=== PATIENT | female | born 1960 | race Caucasian/White ===

== ENCOUNTER 2023-02-11 11:02 | Outpatient (OUT) | payer OTHER, SELFPAY ==
--- NOTE | 2023-02-11 11:06 | MM_ITS ---
Patient: JOYCE GRAYSON V. Exam Date: 02/11/2023 : 1960 Gender:F Ordering : DR SHAAN LEE Admission #: [id number] Family : Order #: [id number] CLICK HERE TO VIEW EXAM RADIOLOGY REPORT PROCEDURE: MM TOMOSYNTHESIS SCREENING BI COMPARISON: MG MAMM SCREEN 3D SONY CAD, 02/04/2021. MG MAMM SCREEN 3D SONY CAD, 02/06/2022. INDICATIONS: Screening Calculator Name NCI Breast Cancer Risk Assessment Tool 5 Year Breast Cancer Risk 1.70% Lifetime Breast Cancer Risk 7.70% Personal Breast Cancer No Personal Ovarian Cancer No Treatments None Family Cancers Aunt-maternal with breast cancer at age 62; Cousin-maternal with breast cancer at age 33; Aunt-maternal with unknown cancer at age ~60. LOCATION: [facility] BREAST COMPOSITION: Heterogeneously dense,which may obscure small masses. FINDINGS: DIAGNOSTIC CATEGORY 2--BENIGN FINDING. NO CHANGE FROM COMPARISON. Scattered benign-appearing nodules are present. Scattered benign-appearing calcifications are present. Scattered benign-appearing lymph nodes are present. RIGHT BREAST: No significant suspicious finding. LEFT BREAST: No significant suspicious finding. RECOMMENDATIONS: ROUTINE MAMMOGRAM AND CLINICAL EVALUATION IN 12 MONTHS. PLEASE NOTE: A NORMAL MAMMOGRAM DOES NOT EXCLUDE THE POSSIBILITY OF BREAST CANCER. A CLINICALLY SUSPICIOUS PALPABLE LUMP SHOULD BE BIOPSIED. Dictated by: Reed Pond MD on 02/12/2023 at 11:06 Approved by: Reed Pond MD on 02/12/2023 at 11:08
== END 2023-02-11 11:03 | disposition home or self-care (01) ==
LOC: MAMMO 11:02
PROVIDERS: PCP Nurse Practitioner Family; Visit Provider Nurse Practitioner Family
DX: Z12.31 Encounter for screening mammogram for malignant neoplasm of breast (principal); Z80.3 Family history of malignant neoplasm of breast; Z80.9 Family history of malignant neoplasm, unspecified
CPT/HCPCS: 77063; 77067

== ENCOUNTER 2024-03-01 12:42 | Outpatient (OUT) | payer OTHER, SELFPAY ==
--- NOTE | 2024-03-01 12:45 | MM_ITS ---
Patient Name: JOYCE GRAYSON MR#: [id number] : 1960 Exam Date: 03/01/2024 Ordering Doctor: Whitney Hough RADIOLOGY REPORT PROCEDURE: MM TOMOSYNTHESIS SCREENING BI COMPARISON: MG MAMM SCREEN 3D SONY CAD, 02/06/2022. MM TOMOSYNTHESIS SCREENING BI, 02/11/2023. INDICATIONS: screening for malignant neoplasm of breast Calculator Name NCI Breast Cancer Risk Assessment Tool 5 Year Breast Cancer Risk 1.70% Lifetime Breast Cancer Risk 7.40% Personal Breast Cancer No Personal Ovarian Cancer No Treatments None Family Cancers Aunt-maternal with breast cancer at age 62; Cousin-maternal with breast cancer at age 33; Aunt-maternal with unknown cancer at age ~60. LOCATION: [facility] BREAST COMPOSITION: The breasts are heterogeneously dense,which may obscure small masses. FINDINGS: DIAGNOSTIC CATEGORY 2--BENIGN FINDING. NO CHANGE FROM COMPARISON. Scattered benign-appearing nodules are present. Scattered benign-appearing calcifications are present. Scattered benign-appearing lymph nodes are present. RIGHT BREAST: No significant suspicious finding. LEFT BREAST: No significant suspicious finding. RECOMMENDATIONS: ROUTINE MAMMOGRAM AND CLINICAL EVALUATION IN 12 MONTHS. PLEASE NOTE: A NORMAL MAMMOGRAM DOES NOT EXCLUDE THE POSSIBILITY OF BREAST CANCER. A CLINICALLY SUSPICIOUS PALPABLE LUMP SHOULD BE BIOPSIED. Dictated by: Reed Pond MD on 03/01/2024 at 14:16 Approved by: Reed Pond MD on 03/01/2024 at 14:23
--- OUTSIDE RECORDS SUMMARY | 2024-03-01 12:48 | XMS_ITS | CCD ---
Author Organization [facility] Care Team Providers Care Technical Trainer Name Role Phone ANA ANDERSON Attending Unavailable FARIHA HARRINGTON Primary Care Unavailable YUHAS, DR FRIED Admitting Unavailable YUHAS, DR FRIED Attending Unavailable YUHAS, DR FRIED Consulting Unavailable KUNS, DR LIZ Parker Admitting Unavailable KUNS, DR LIZ Parker Attending Unavailable KUNAntony, DR LIZ Parker Primary Care Unavailable KUNAntony, DR LIZ Parker Consulting Unavailable Good Yu Attending Unavailmandeep Yu, Good Parker Admitting UnavailFariha Hendrix Primary Care Unavailable MD Good Yu Attending Provider [phone] DO Fariha Harrington Primary Care Provider [phone] Fariha Harrington DO Primary Care Provider Kathy Redman Primary Care Provider TRISTA SAINI Attending Unavailable TRISTA SAINI Attending Unavailable MARCELLA FINNEY Referring Unavailable CHRIS KATHY Primary Care Unavailable KATHY PEREZ Referring Unavailable CHRIS, KATHY Primary Care Unavailable TRISTA SAINI Referring Unavailable CHRIS, KATHY Primary Care Unavailable TRISTA SAINI Referring Unavailable CHRIS, KATHY Primary Care Unavailable TRISTA SAINI Referring Unavailable CHRIS, KATHY Primary Care Unavailable KATHY PEREZ Referring Unavailable CHRIS, KATHY Primary Care Unavailable YUHASFARIHA Referring Unavailable ELDERHAFARIHA Hardy Primary Care Unavailable KATHY PEREZ Attending Unavailable FARIHA HARRINGTON Referring Unavailable YUHAS, FARIHA L Primary Care Unavailable MARCELLA FINNEY Attending Unavailable YUHASFARIHA Referring Unavailable PEREZ, KATHY Primary Care Unavailable LIZ ELIAS Attending Unavailable ELDERHAFARIHA Hardy Referring Unavailable YUFARIHA JOSEPH L Primary Care Unavailable KATHY PEREZ Attending Unavailable KATHY PEREZ Referring Unavailable CHRIS, KATHY Primary Care Unavailable KATHY PEREZ Attending Unavailable KATHY PEREZ Referring Unavailable KATHY PEREZ Primary Care Unavailable Allergies Allergy Classification Reported Allergen(s) Allergy Type Date of Onset Reaction(s) Facility (8 sources) Mold Extract; Translations: [MOLD] Drug Allergy 10-21-2016 [facility] 14 Work Phone: Medications Current Medications Medication Drug Class(es) Dates Sig (Normalized) Sig (Original) ascorbic acid 1000 mg oral tablet (6 sources) Vitamin C Start: 11-24-2022 take 1 g by mouth once daily Ascorbic Acid (Vitamin C) (Vitamin C) 1,000 mg Tablet Active 1 GM PO Daily November 24, 2022 12:00am cholecalciferol 0.05 mg oral tablet (6 sources) Vitamin D Start: 11-24-2022 take 1 tablet by mouth once daily Cholecalciferol (Vitamin D3) (Vitamin D3) 50 mcg (2,000 unit) Tablet Active 150 MCG PO Daily November 24, 2022 12:00am cholecalciferol, vitamin D3, 2,000 units tablet 0.5 tablets (1,000 Units total) in the morning. Active cinnamon bark 500 mg oral capsule (6 sources) Start: 11-24-2022 take 1 capsule by mouth once daily Cinnamon Bark (Cinnamon) 500 mg Capsule Active 1500 MG PO Daily November 24, 2022 12:00am cyclobenzaprine hydrochloride 5 mg oral tablet (1 source) Muscle Relaxant Start: 02-29-2024 take 1 tablet by mouth once daily as needed for muscle spasms cyclobenzaprine (FLEXERIL) 5 mg tablet Indications: Degeneration of intervertebral disc of lumbar region, unspecified whether pain present Take 1 tablet (5 mg total) by mouth nightly as needed for muscle spasms. 14 tablet 02/29/2024 Active ERGOCALCIFEROL, VITAMIN D2, (VITAMIN D2 ORAL) (5 sources) ERGOCALCIFEROL, VITAMIN D2, (VITAMIN D2 ORAL) Take by mouth. Active ERGOCALCIFEROL, VITAMIN D2, (VITAMIN D2 ORAL) Take by mouth. 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 90 tablet 3 04/02/2023 Active Start: 11-24-2022 take 125 ug by mouth once daily Levothyroxine Active 125 MCG PO Daily November 24, 2022 12:00am Bryceland's Wort (1 source) Start: 11-24-2022 take 300 mg by mouth once daily Dyan's Wort Active 300 MG PO Daily November 24, 2022 12:00am DYAN'S WORT ORAL (2 sources) DYAN'S WORT ORAL Take by mouth. Active DYAN'S WORT ORAL Take by mouth. 0 Active vitamin b12 1 mg oral tablet (5 sources) Vitamin B12 cyanocobalamin ( vitamin B-12) 1000 MCG tablet 500 tablets (500,000 mcg total). Active vitamin b6 100 mg oral tablet (5 sources) pyridoxine, yaneth min B6, (vitamin B-6) 100 mg tablet 1 tablet Active Zinc (6 sources) Start: 11-24-2022 take 50 mg by mouth once daily Zinc Active 50 MG PO Daily November 24, 2022 12:00am zinc 50 mg table t tablet zinc Active zinc 50 mg table t tablet zinc 0 Active Completed/Discontinued Medications Medication Drug Class(es) Dates Sig (Normalized) Sig (Original) meloxicam 15 mg oral tablet (4 sources) Nonsteroidal Anti-inflammatory Drug Start: 05-18-2023 End: 07-07-2023 take 1 tablet by mouth in the morning meloxicam (MOBIC) 15 mg tablet Take 1 tablet (15 mg total) by mouth in the morning. 15 tablet 1 05/18/2023 07/07/2023 Discontinued (Therapy completed) tiZANidine 4 mg oral tablet (6 sources) Central alpha-2 Adrenergic Agonist Start: 05-18-2023 End: 07-07-2023 take 1 tablet by mouth once daily at bedtime tiZANidine (ZANAFLEX) 4 mg tablet Take 1 tablet (4 mg total) by mouth once daily at bedtime. 30 tablet 0 06/15/2023 07/07/2023 Discontinued (Therapy completed) Problems Active Problems Problem Classification Problem Date Documented Date Episodic/Chronic Disorders of lipid metabolism (6 sources) Mixed hyperlipidemia; Translations: [Mixed hyperlipidemia] Onset: 03-31-2022 03-31-2022 Chronic Menopausal disorders (5 sources) Atrophic vaginitis; Translations: [Postmenopausal atrophic vaginitis] Onset: 03-23-2018 03-18-2022 Chronic Nutritional deficiencies (5 sources) Vitamin D deficiency; Translations: [Vitamin D deficiency, unspecified] Onset: 08-22-2022 08-22-2022 Chronic Other eye disorders (5 sources) 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; Translations: [Unspecified retained (old) intraocular foreign body, nonmagnetic, unspecified eye] Onset: 03-18-2022 03-18-2022 Chronic Other nervous system disorders (3 sources) Anesthesia of skin; Translations: [Anesthesia of skin] Onset: 01-13-2024 Episodic Other nervous system disorders (1 source) Paresthesia; Translations: [Paresthesia of skin] 02-29-2024 Episodic Other nervous system disorders (1 source) Numbness Onset: 01-13-2024 Episodic Other nutritional; endocrine; and metabolic disorders (1 source) Body mass index 30+ - obesity; Translations: [Body mass index (BMI) 30.0-30.9, adult] 07-07-2023 Chronic Other screening for suspected conditions (not mental disorders or infectious disease) (6 sources) Encounter for screening mammogram for malignant neoplasm of breast; Translations: [Patient encounter status] Onset: 02-06-2022 Episodic Residual codes; unclassified (1 source) Family history of malignant neoplasm of breast; Translations: [FAMILY HX MALIG NEOPLASM OF BREAST] Onset: 02-14-2022 Episodic Residual codes; unclassified (1 source) Family history of malignant neoplasm, unspecified; Translations: [FAM HX MALIGNANT NEOPLASM UNS] Onset: 02-14-2022 Episodic Spondylosis; intervertebral disc disorders; other back problems (2 sources) Degeneration of lumbar intervertebral disc; Translations: [Degeneration of intervertebral disc of lumbar region, unspecified whether pain present] 02-29-2024 Chronic Thyroid disorders (17 sources) 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; Translations: [Other specified hypothyroidism] Onset: 07-01-2017 03-18-2022 Chronic Unclassified (2 sources) CONTACT W/AND (SUSP) EXPOS COVID-19; Translations: [CONTACT W/AND (SUSP) EXPOS COVID-19] Onset: 05-08-2021 Unclassified (1 source) Encounter for screening for malignant neoplasm of colon; Translations: [Encounter for screening for malignant neoplasm of colon] Onset: 11-25-2022 Unclassified (1 source) New Patient Onset: 07-07-2023 Viral infection (1 source) COVID-19; Translations: [COVID-19] Onset: 05-08-2021 Past or Other Problems Problem Classification Problem Date Documented Da te Episodic/Chronic Blindness and vision defects (5 sources) Bilateral eye astigmatism; Translations: [Unspecified astigmatism, bilateral] Onset: 03-07-2019 03-18-2022 Episodic Mood disorders (5 sources) Mood disorders Onset: 05-18-2023 Resolved: 02-29-2024 05-18-2023 Other non-traumatic joint disorders (1 source) Effusion, left knee; Translations: [Effusion, left knee] Onset: 08-19-2023 Episodic Spondylosis; intervertebral disc disorders; other back problems (2 sources) Chronic low back pain; Translations: [Lumbago with sciatica, left side] Onset: 05-18-2023 02-29-2024 Episodic Sprains and strains (2 sources) Low back strain; Translations: [Strain of muscle, fascia and tendon of lower back, initial encounter] Onset: 05-18-2023 05-18-2023 Episodic Unclassified (1 source) CONTACT W/AND (SUSP) EXPOS COVID-19; Translations: [CONTACT W/AND (SUSP) EXPOS COVID-19] Onset: 05-02-2021 Unclassified (5 sources) Onset: 04-08-2023 04-08-2023 Results Test Name Value Interpretation Reference Range Facility XR SPINE LUMBAR 2 OR 3 VWSon 01-15-2024 XR SPINE LUMBAR 2 OR 3 VWS XR SPINE LUMBAR 2 OR 3 VWS Lumbosacral spine: 01/13/2024 12:43 PM. Reason for study: Numbness of toes. Comparison: Lumbosacral spine radiograph from 06/02/2019. Technique: AP, lateral, and cone-down lateral views of the lumbosacral spine were obtained. Findings: There are 5 nonrib-bearing vertebrae lumbar spine. Sacroiliac joints are unremarkable. Grade 1 anterolisthesis of L4 on L5. Moderate to severe degenerative disc disease at L2-3. Moderate lumbosacral degenerative disc disease. Similar-appearing vertebral body heights. Mild to moderate facet arthropathy the lower lumbar spine. Impression: Grade 1 anterolisthesis of L4 on L5 with degenerative changes as above. 0 Finalized by Virgen Spencer MD on 01/15/2024 9:21 AM Normal [facility] Folate [Mass/Vol]on 01-13-20 FOLIC ACID >25.0 Normal >5.8 [facility] Comment on above: Result Comment: NEW REFERENCE RANGE Performed By: #### S MATA, 2283-11, 2131-12 #### [facility] ([id number]) [address], [address] [place] [address] SERUM PROTEIN ELECTROPHORESI Son 01-13-2024 Albumin [Mass/Vol] 4.1 g/dL Normal 3.4-5.3 [facility] Comment on above: Performed By: #### Antony , 2283-11, 2131-12 #### [facility] ([id number]) [address], [address] [place] [address] ALPHA 1 GLOBULIN 0.3 g/dL Normal 0.1-0.4 [facility] Comment on above: Performed By: #### S , 2283-11, 2131-12 #### [facility] ([id number]) [address], [address] [place] [address] ALPHA 2 GLOBULIN 0.8 g/dL Normal 0.4-1.1 [facility] Comment on above: Performed By: #### S , 2283-11, 2131-12 #### [facility] ([id number]) [address], [address] [place] [address] BETA GLOBULIN 0.8 g/dL Normal 0.5-1.2 [facility] Comment on above: Performed By: #### S MATA, 2283-11, 2131-12 #### [facility] ([id number]) [address], [address] [place] [address] GAMMA GLOBULIN 1.0 g/dL Normal 0.5-1.6 [facility] Comment on above: Performed By: #### S MATA, 2283-11, 2131-12 #### [facility] ([id number]) [address], [address] [place] [address] PROT. ELECTROPHORESIS INTERP Unremarkable protein distribution, no monoclonal bands. Normal [facility] Comment on above: Performed By: #### S MATA, 2283-11, 2131-12 #### [facility] ([id number]) [address], [address] [place] [address] Protein [Mass/Vol] 7.1 g/dL Normal 6.0-8.0 [facility] Comment on above: Performed By: #### S MATA, 2283-11, 2131-12 #### [facility] ([id number]) [address], [address] [place] [address] VITAMIN B12on 01-13-2024 Cobalamin (Vitamin B12) [Mass/Vol] 674 pg/mL Normal 180-914 [facility] Comment on above: Performed By: #### S PE, 2283-11, 2131-12 #### [facility] ([id number]) [address], [address] [place] [address] THYROID PROFILEon 09-01-2023 Free T4 [Mass/Vol] 1.12 ng/dL Normal 0.61-1.60 [facility] Comment on above: Performed By: #### T HYR #### [facility] ([id number]) [address], [address] [place] [address] TSH 1.36 uIU/mL Normal 0.49-4.67 [facility] Comment on above: Performed By: #### T HYR #### [facility] ([id number]) [address], [address] [place] [address] THYROID PROFILEon 05-19-2023 Free T4 [Mass/Vol] 1.34 ng/dL Normal 0.61-1.60 [facility] Comment on above: Performed By: #### T HYR #### [facility] ([id number]) [address] [place] [address] TSH 1.62 uIU/mL Normal 0.49-4.67 [facility] Comment on above: Performed By: #### T HYR #### [facility] ([id number]) [address], [address] [place] [address] MAMMO SONY SCREENon MAMMO SONY SCREEN Patient: JOYCE GRAYSON V. Exam Date: 02/06/2022 : 1960 Gender:F Ordering : DR LIZ ELIAS Admission #: Family : Order #: [id number] CLICK HERE TO VIEW EXAM RADIOLOGY REPORT PROCEDURE: MAMMOGRAM SCREENING 3D BILATERAL CAD COMPARISON: MG MAMM SCREEN 3D SONY CAD, 02/04/2021. MG MAMM SCREEN SONY W CAD, 01/30/2020. INDICATIONS: Calculator Name NCI Breast Cancer Risk Assessment Tool 5 Year Breast Cancer Risk 1.60% Lifetime Breast Cancer Risk 7.90% Personal Breast Cancer No Personal Ovarian Cancer No Treatments None Family Cancers Aunt-maternal with breast cancer at age 62; Cousin-maternal with breast cancer at age 33; Aunt-maternal with unknown cancer at age 60. LOCATION: [facility] BREAST COMPOSITION: Heterogeneously dense,which may obscure small masses. FINDINGS: DIAGNOSTIC CATEGORY 2--BENIGN FINDING. NO CHANGE FROM COMPARISON. Scattered benign-appearing nodules are present. Scattered benign-appearing calcifications are present. Scattered benign-appearing lymph nodes are present. RIGHT BREAST: No significant suspicious finding. LEFT BREAST: No significant suspicious finding. RECOMMENDATIONS: ROUTINE MAMMOGRAM AND CLINICAL EVALUATION IN 12 MONTHS. PLEASE NOTE: A NORMAL MAMMOGRAM DOES NOT EXCLUDE THE POSSIBILITY OF BREAST CANCER. A CLINICALLY SUSPICIOUS PALPABLE LUMP SHOULD BE BIOPSIED. Dictated by: Reed Pond MD on 02/07/2022 at 08:35 Approved by: Reed Pond MD on 02/07/2022 at 08:37 Normal [facility] MAMM SCREEN 3D SONY CADon 02-06-2022 MG MAMM SCREEN 3D SONY CAD Patient: JOYCE GRAYSON V. Exam Date: 02/06/2022 : 1960 Gender:F Ordering : DR LIZ ELIAS Admission #: Family : Order #: [id number] CLICK HERE TO VIEW EXAM RADIOLOGY REPORT PROCEDURE: MAMMOGRAM SCREENING 3D BILATERAL CAD COMPARISON: MG MAMM SCREEN 3D SONY CAD, 02/04/2021. MG MAMM SCREEN SONY W CAD, 01/30/2020. INDICATIONS: Calculator Name NCI Breast Cancer Risk Assessment Tool 5 Year Breast Cancer Risk 1.60% Lifetime Breast Cancer Risk 7.90% Personal Breast Cancer No Personal Ovarian Cancer No Treatments None Family Cancers Aunt-maternal with breast cancer at age 62; Cousin-maternal with breast cancer at age 33; Aunt-maternal with unknown cancer at age 60. LOCATION: [facility] BREAST COMPOSITION: Heterogeneously dense,which may obscure small masses. FINDINGS: DIAGNOSTIC CATEGORY 2--BENIGN FINDING. NO CHANGE FROM COMPARISON. Scattered benign-appearing nodules are present. Scattered benign-appearing calcifications are present. Scattered benign-appearing lymph nodes are present. RIGHT BREAST: No significant suspicious finding. LEFT BREAST: No significant suspicious finding. RECOMMENDATIONS: ROUTINE MAMMOGRAM AND CLINICAL EVALUATION IN 12 MONTHS. PLEASE NOTE: A NORMAL MAMMOGRAM DOES NOT EXCLUDE THE POSSIBILITY OF BREAST CANCER. A CLINICALLY SUSPICIOUS PALPABLE LUMP SHOULD BE BIOPSIED. Dictated by: Reed Pond MD on 02/07/2022 at 08:35 Approved by: Reed Pond MD on 02/07/2022 at 08:37 Normal [facility] Covid-19 PCR (CVDTB)on SARS-CoV-2 (COVID-19) RNA ALPA+probe Ql (Unsp spec) Detected Critically abnormal NOT DETECTED [facility] Comment on above: Result Comment: This test is not yet approved or cleared by the [place] FDA. When there are no FDA-approved or cleared tests available, and other criteria are met, FDA can make tests available under an emergency access mechanism called an Emergency Use Authorization (EUA). The EUA for this test is supported by the [place] of Health and Human Service's (HHS's) declaration that circumstances exist to justify the emergency use of in vitro diagnostics for the detection and/or diagnosis of the virus that causes COVID-19. This EUA will remain in effect (meaning this test can be used) for the duration of the COVID-19 declaration justifying emergency of IVDs, unless it is terminated or revoked by FDA (after which the test may no longer be used). Performed By: #### C [facility] #### [facility] [address] [place] [address] Dr. Karan Boo XR KNEE RIGHT (1-2 VIEWS)on 03-30-2021 XR KNEE RIGHT (1-2 VIEWS) RADRPT EXAM: XR KNEE RIGHT (1-2 VIEWS) HISTORY: TECH NOTES: Fell, generalized knee pain 2 images ro fx COMPARISON: None. TECHNIQUE: 2 views. FINDINGS: Mild patellofemoral joint degenerative changes are noted. No suprapatellar effusion seen. No acute osseous abnormality is evident. Report electronically signed by: Dr. Troy Marks IMPRESSION: Patellofemoral joint degenerative changes. No acute findings. Fell, generalized knee pain 2 images Interpreted by: Troy Marks MD Signed by: Troy Marks MD 03/30/21 Final result Normal [facility] XR SHOULDER LEFT 1 VWon 12- XR SHOULDER LEFT 1 VW RADRPT EXAM: XR SHOULDER LEFT 1 VW HISTORY: TECH NOTES: Fell 1 image ro fx COMPARISON: None. TECHNIQUE: Single view of the shoulder is obtained. FINDINGS: Single view of the shoulder is obtained. No gross abnormalities are noted. Report electronically signed by: Dr. Troy Marks IMPRESSION: Single view showing no gross abnormalities. Recommend completing the shoulder examination. Fell 1 image Interpreted by: Troy Marks MD Signed by: Troy Marks MD 03/30/21 Final result Normal [facility] CNPNon 08-23-2020 CNPN Telephone (CARCMN) ---- JOYCE GRAYSON V ([id number]) 1960 F Date Time Provider Department 08/23/20 FARIHA LEMUS (HIST) BRUNA During your visit today, we recorded the following information about you: Ariela Sahu [facility] 08/23/2020 11:33 AM Signed Spoke with pt in regards to offering appt. with another provider due to not being seen since [address] Lemus. Pt declined stating no current cardiac reasons for appt. Informed to contact scheduling office in future if needed. FEDE Burton Allergies As of Date: 08/23/2020 Noted Allergy Reaction MOLD SPORES 10/08/2016 14 - Other: See Comments Comments: Confirmed through allergy testing Date Reviewed: 03/07/2019 Reviewed by: Massiel Denton - Fully Assessed Reason for Visit: Reconnect Patient [Other] Prescriptions as of 08/23/2020 Sig: LEVOTHYROXINE 112 MCG TABLET Take 112 mcg by mouth daily b* OTC PRODUCT MIGRAINE PAIN RELIEVER 250 MG* Take as needed for migraine p* IBUPROFEN 200 MG CAPSULE One to two tablets PRN pain. Problem List As Of Date 08/23/2020 Noted Resolved HYPERLIPIDEMIA NEC/NOS [E78.5] 11/09/2008 Astigmatism with presbyopia, bilateral [H52.203*03/07/2019 Encounter Status:Closed by ARIELA CHASE on 08/23/[address] [facility] Vital Signs Date Time Vital Sign Value Performing Clinician Facility 02-29-2024 11:010500 Body height 177.8 cm Kathy Perez APRNKIWATCH Work Phone: [facility] 02-29-2024 11:01-0500 Body mass index (BMI) [Ratio] 30.13 kg/m2 Kathy Perez APRN-FORM GRADER OPERATOR Work Phone: [facility] 02-29-2024 11:01-0500 Body temperature 97.7 [degF] Kathy Perez WATERPROOFING SUPERVISOR-FORM GRADER OPERATOR Work Phone: [facility] 02-29-2024 11:01-0500 Body weight 95.25 kg Kathy Perez WATERPROOFING SUPERVISOR-FORM GRADER OPERATOR Work Phone: [facility] 02-29-2024 11:01-0500 Diastolic blood pressure 82 mm[Hg] Kathy Perez WATERPROOFING SUPERVISOR-FORM GRADER OPERATOR Work Phone: [facility] 02-29-2024 11:01-0500 Heart rate 88 /min Kathy Perez WATERPROOFING SUPERVISOR-FORM GRADER OPERATOR Work Phone: [facility] 02-29-2024 11:01-0500 Respiratory rate 18 /min Kathy Perez WATERPROOFING SUPERVISOR-FORM GRADER OPERATOR Work Phone: [facility] 02-29-2024 11:01-0500 SaO2% (BldA) [Mass fraction] 97 % Kathy Perez WATERPROOFING SUPERVISOR-FORM GRADER OPERATOR Work Phone: [facility] 02-29-2024 11:01-0500 Systolic blood pressure 126 mm[Hg] Kathy Perez WATERPROOFING SUPERVISOR-FORM GRADER OPERATOR Work Phone: [facility] 07-07-2023 13:54-0400 Body height 177.8 cm Kathy Perez WATERPROOFING SUPERVISOR-FORM GRADER OPERATOR Work Phone: [facility] 07-07-2023 13:54-0400 Body mass index (BMI) [Ratio] 30.56 kg/m2 Kathy Perez WATERPROOFING SUPERVISOR-FORM GRADER OPERATOR Work Phone: [facility] 07-07-2023 13:54-0400 Body temperature 97.81 [degF] Kathy Perez WATERPROOFING SUPERVISOR-FORM GRADER OPERATOR Work Phone: [facility] 07-07-2023 13:54-0400 Body weight 96.62 kg Kathy Perez WATERPROOFING SUPERVISOR-FORM GRADER OPERATOR Work Phone: [facility] 07-07-2023 13:54-0400 Diastolic blood pressure 82 mm[Hg] Kathy Perez APRN-FORM GRADER OPERATOR Work Phone: [email or web address] 07-07-2023 13:54-0400 Heart rate 78 /min Kathy Perez APRN-FORM GRADER OPERATOR Work Phone: [facility] 07-07-2023 13:54-0400 SaO2% (BldA) [Mass fraction] 97 % Kathy Perez APRN-FORM GRADER OPERATOR Work Phone: [facility] 07-07-2023 13:54-0400 Systolic blood pressure 122 mm[Hg] Kathy Perez APRN-FORM GRADER OPERATOR Work Phone: [facility] 05-18-2023 09:55-0500 Body height 177.8 cm Liz Elias WATERPROOFING SUPERVISOR-BANK TELLER MACHINE MECHANIC Work Phone: [facility] 05-18-2023 09:55-0500 Body mass index (BMI) [Ratio] 30.1 kg/m2 Liz Elias WATERPROOFING SUPERVISOR-BANK TELLER MACHINE MECHANIC Work Phone: [facility] 05-18-2023 09:55-0500 Body temperature 98.01 [degF] Liz Elias APRN-BANK TELLER MACHINE MECHANIC Work Phone: [facility] 05-18-2023 09:55-0500 Body weight 95.17 kg Liz Elisa APRN-BANK TELLER MACHINE MECHANIC Work Phone: [facility] 05-18-2023 09:55-0500 Diastolic blood pressure 72 mm[Hg] Liz Elias APRN-BANK TELLER MACHINE MECHANIC Work Phone: [facility] [facility] 05-18-2023 09:55-0500 Heart rate 67 /min Liz Elias APRN-BANK TELLER MACHINE MECHANIC Work Phone: [facility] 05-18-2023 09:55-0500 SaO2% (BldA) [Mass fraction] 98 % Liz Elias APRN-BANK TELLER MACHINE MECHANIC Work Phone: [facility] 05-18-2023 09:55-0500 Systolic blood pressure 128 mm[Hg] Liz Elias WATERPROOFING SUPERVISOR-BANK TELLER MACHINE MECHANIC Work Phone: [facility] 11-25-2022 10:13-0400 Diastolic blood pressure 87 mm[Hg] DO Fariha Harrington Work Phone: [facility] 11-25-2022 10:13-0400 Heart rate 65 /min DO Fariha Harrington Work Phone: [facility] 11-25-2022 10:13-0400 Respiratory rate 16 /min DO Fariha Harrington Work Phone: [facility] 11-25-2022 10:13-0400 SaO2% (BldA) [Mass fraction] 100 % DO Fariha Harrington Work Phone: [facility] 11-25-2022 10:13-0400 Systolic blood pressure 137 mm[Hg] DO Fariha Harrington Work Phone: [facility] 11-25-2022 08:22-0400 Body height 177.8 cm DO Fariha Harrington Work Phone: [facility] 11-25-2022 08:22-0400 Body temperature 97.9 [degF] DO Fariha Harrington Work Phone: [facility] 11-25-2022 08:22-0400 Body weight 97.52 kg DO Fariha Harrington Work Phone: [facility] Encounters Encounter Date Encounter Type Care Provider Facility Start: 02-29-2024 End: 02-29-2024 Office outpatient visit 15 minutes [facility] WATERPROOFING SUPERVISOR-FORM GRADER OPERATOR Work Phone: [facility]/Noé Feng MD Comment on above: Chronic left-sided l ow back pain with left-sided sciatica (Primary Dx); Degeneration of intervertebral disc of lumbar region, unspecified whether pain present; Paresthesias Start: 02-29-2024 End: 02-29-2024 ambulatory [facility] Start: 01-13-2024 End: 01-13-[address] [facility] Start: 01-13-2024 End: 01-13-2024 ambulatory [facility] Start: 01-13-2024 End: 01-13-2024 ambulatory [facility] Start: 10-26-2023 End: 11-26-2023 ambulatory TRISTA SAINI [facility] Start: 09-29-2023 End: 10-26-2023 ambulatory TRISTA SAINI Not Available Start: 09-01-2023 End: 09-01-2023 ambulatory MARCELLA FINNEY [facility] Start: 08-19-2023 End: 09-26-2023 ambulatory TRISTA SAINI [facility] Start: 08-18-2023 End: 08-18-2023 ambulatory TRISTA Simmons PAR[facility] Not Available Start: 07-07-2023 End: 07-07-2023 Office outpatient new 30 minutes [facility] WATERPROOFING SUPERVISOR-FORM GRADER OPERATOR [facility]Noé Feng MD Comment on above: 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 Start: 05-18-2023 End: 05-18-2023 Office outpatient visit 15 minutes Liz Elias WATERPROOFING SUPERVISOR-BANK TELLER MACHINE MECHANIC Work Phone: [facility] Comment on above: Strain of lumbar reg ion, initial encounter (Primary Dx) Start: 05-18-2023 End: 05-18-2023 ambulatory LIZ ELIAS [facility] Start: 11-25-2022 End: 11-25-2022 ambulatory Good Yu Facility:[facility] Start: 11-25-2022 End: 11-25-2022 Admission to same day surgery center DO Fariha Harrington Work Phone: [facility] Work Phone: Start: 11-25-2022 End: 11-25-2022 ambulatory DO Fariha Harrington Work Phone: [facility] Work Phone: Start: 02-06-2022 End: 02-07-[address] LIZ ELIAS Facility:[facility] Start: 05-02-2021 End: 05-02-[address] FARIHA HARRINGTON Facility:[facility] Start: 03-30-2021 End: 03-31-2021 Emergency department patient visit [facility] Procedures Date Procedure Procedure Detail Performing Clinician Start: 02-29-2024 Follow-up visit Follow-up KATHY PEREZ Start: 02-29-2024 Adult depression scr eening assessment Kathy Perez WATERPROOFING SUPERVISOR-FORM GRADER OPERATOR Work Phone: Start: 07-07-2023 Adult depression scr eening assessment Kathy Perez WATERPROOFING SUPERVISOR-FORM GRADER OPERATOR Work Phone: Start: 05-18-2023 Adult depression scr eening assessment Liz Elias WATERPROOFING SUPERVISOR-BANK TELLER MACHINE MECHANIC Work Phone: Start: 02-11-2023 Mammography Liz Elias WATERPROOFING SUPERVISOR-BANK TELLER MACHINE MECHANIC Work Phone: Start: 11-25-2022 Screening colonoscopy D O Fariha Harrington Work Phone: Start: 11-25-2022 Colonoscopy Liz Elias WATERPROOFING SUPERVISOR-BANK TELLER MACHINE MECHANIC Work Phone: Start: 03-31-2022 Microscopic observat ion [Identifier] in Cervix by Cyto stain Liz Elias WATERPROOFING SUPERVISOR-BANK TELLER MACHINE MECHANIC Work Phone: Plan of Treatment Date Care Activity Detail Author Start: 11-25-2032 Screening for malign ant [facility] Start: 04-23-2025 DTaP,Tdap and Td Vaccines (2 - Td or Tdap) DTaP,Tdap and Td Vaccines (2 - Td or Tdap) [facility] Start: 03-31-2025 Screening for malign ant neoplasm of cervix Pap Smear [facility] Start: 02-28-2025 Adult BMI Screening Adult BMI Screen ing [facility] Start: 02-28-2025 Depression Screening Depression Scre ening [facility] Start: 01-24-2025 Tobacco Screening Tobacco Screening [facility] Start: 09-07-2024 End: 09-07-2024 Patient encounter procedure 09/07/2024 11:30 AM EDT Office Visit [facility] [address] [place] [address] Marcella Finney MD [address] [place] [address] [facility] Start: 07-06-2024 Adult BMI Screening Adult BMI Screen ing [facility] Start: 07-06-2024 Depression Screening Depression Scre ening [facility] Start: 07-06-2024 Tobacco Screening Tobacco Screening [facility] Start: 05-18-2024 Adult BMI Screening Adult BMI Screen ing [facility] Start: 05-18-2024 Depression Screening Depression Scre ening [facility] Start: 05-18-2024 Tobacco Screening Tobacco Screening [facility] Start: 05-02-2024 End: 05-02-2024 Patient encounter procedure 05/02/2024 1:00 PM EST Office Visit [facility]/Noé Feng MD [address] [place] [phone] Kathy Perez, WATERPROOFING SUPERVISOR-FORM GRADER OPERATOR [address] [place] [address] [facility]/Noé Feng MD Start: 04-08-2024 Adult BMI Follow Up Plan Adult BMI Follow Up Plan [facility] Start: 04-08-2024 Adult BMI Screening Adult BMI Screen ing [facility] Start: 04-08-2024 Depression Screening Depression Scre ening [facility] Start: 04-08-2024 Tobacco Screening Tobacco Screening [facility] Start: 03-28-2024 End: 03-28-2024 Patient encounter procedure 03/28/2024 10:40 AM EST Office Visit [facility]/Noé Feng MD [address] [place] [phone] Kathy Perez, WATERPROOFING SUPERVISOR-FORM GRADER OPERATOR [address] [place] [address] [facility]/Noé Feng MD Start: 03-07-2024 End: 03-07-2024 Patient encounter procedure 03/07/2024 1:00 PM EST Appointment [facility] [address] [place] [phone] Degeneration of intervertebral disc of lumbar region, unspecified whether pain present [facility] Comment on above: Degeneration of inte rvertebral disc of lumbar region, unspecified whether pain present Start: 02-12-2024 Screening for malign ant neoplasm of breast Mammogram [facility] Start: 12-27-2023 Influenza vaccination Influenza Vacc ine [facility] Start: 09-01-2023 End: 09-01-2023 Patient encounter procedure 09/01/2023 1:00 PM EDT Office Visit [facility] [address] [place] [address] Marcella Finney MD [address] [place] [address] [facility] Start: 07-07-2023 End: 07-07-2023 Patient encounter procedure 07/07/2023 2:00 PM EDT Office Visit [facility]/Noé Feng MD [address] [place] [phone] Kathy Perez, WATERPROOFING SUPERVISOR-FORM GRADER OPERATOR [address] [place] [address] [facility]/Noé Feng MD Start: 12-26-2022 Influenza vaccination Influenza Vacc ine [facility] Start: 11-25-2022 [facility] Start: 2010 Administration of varicella zoster vaccine Zoster (Shingles) Vaccine (1 of 2) [facility] Patient Education Diverticulosis (DC) [facility] Work Phone: Immunizations Immunization Date Immunization Notes Care Provider Fa cili 04-23-2015 tetanus toxoid, redu all diphtheria toxoid, and acellular pertussis vaccine, adsorbed Liz Curt WATERPROOFING SUPERVISOR-BANK TELLER MACHINE MECHANIC Work Phone: [facility] Payers Date Payer Category Payer Commercial Managed C are - POS [employer] [id number] 2023 Private Health Insurance [employer] A ETNA POS II [id number] 2023-Present [phone] [address] [place] [address] [id number] 2023 Private Health Insurance [id number] 2022 Self-pay 2022 Unknown [id number] 1960 Unknown [id number] [id number] 79.2.754 1960 Unknown [id number] 2.16.840.1.109295.3.5 79.2.593 1960 Unknown [id number] 2.16.840.1.106287.3.5 79.2.593 1960 Unknown [id number] 2.16.840.1.539373.3.5 79.2.1259 1960 Unknown [id number] 2.16.840.1.320058.3.5 79.2.1259 1960 Unknown [id number] 2.16.840.1.963235.3.5 79.2.1286 1960 Unknown [id number] 2.16.840.1.719460.3.5 79.2.1286 1960 Unknown [id number] 2.16.840.1.510507.3.5 79.2.128 1960 Unknown [id number] 2.16.840.1.382973.3.5 79.2.128 1960 Unknown [id number] 2.16.840.1.293555.3.5 79.2.128 1960 Unknown [id number] 2.16.840.1.370391.3.5 79.2.128 1960 Unknown [id number] 2.16.840.1.615470.3.5 79.2.128 1960 Unknown [id number] 2.16.840.1.759307.3.5 79.2.128 1960 Unknown [id number] 2.16.840.1.939819.3.5 79.2.128 1960 Unknown [id number] 2.16.840.1.575783.3.5 79.2.128 1960 Unknown [id number] 2.16.840.1.198847.3.5 79.2.128 1960 Unknown [id number] 2.16.840.1.762801.3.5 79.2.1286 1959 Unknown [id number] Unknown [id number] 2.16.840.1.402766.3.5 79.2.531 Unknown Boby BC/BS [id number] Social History Date Type Detail Facility Start: 10-21-2016 End: 11-25-2022 Tobacco smoking status NHIS Never smoked tobacco (finding) [facility] Start: 1960 Sex Assigned At Female [facility] Start: 05-18-2023 Alcohol intake Current non-dr fireboat operator of alcohol (finding) [facility] Start: 06-07-2020 End: 05-18-2023 History of Social function [facility] Start: 06-07-2020 End: 05-18-2023 Tobacco use panel [facility] Adolescent depressio n screening assessment 0 [facility] Start: 1960 Sex Assigned At Not on file P [facility] Start: 07-07-2023 End: 02-29-2024 Alcohol intake Current drinker of alcohol (finding) [facility] Start: 07-07-2023 Alcohol Comment occasional [facility] Start: 11-30-2014 Sex Female (finding) [facility] Goals Date Patient Goal Desired Activity /State Clinical Notes 01-30-2021 to 02-29-2024 EVERTON Almazan - 02/29/2024 11:00 AM EVERTON Tony - 07/07/2023 2:00 PM EDTTelephone Encounter - Leni Ramirez, [facility] - 06/15/2023 9:50 AM EST Note Date & Type Note Facility 02-29-2024 History of Presen t illness Narrative Subjective Patient ID: Joyce Grayson is a 63 y.o. female. Chief Complaint Chief Complaint Patient presents with Follow-up Completed labs and testing HPI HPI Paresthesias right lateral toes improved. Does have chronic low back pain, n/t of left anterior thigh. No bowel or bladder incontinence. Back pain worst in AM, improves as day goes on. 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, left 2023 Past Surgical History Past Surgical History: Procedure Laterality Date COLONOSCOPY COLONOSCOPY 10/22/2011 SHOULDER SURGERY Right Family History Family History Problem Relation Age of Onset Breast cancer Maternal Aunt 63 Heart disease Father Alzheimer's disease Mother Cancer Cousin leukemia Breast cancer Cousin 31 Social History Social History Socioeconomic History Marital status: Spouse name: Not on file Number of children: Not on file Years of education: Not on file Highest education level: Not on file Occupational History Not on file Tobacco Use Smoking status: Never Smokeless tobacco: Not on file Substance and Sexual Activity Alcohol use: Yes Comment: occasional Drug use: Never Sexual activity: Yes Partners: Male control/protection: None Other Topics Concern Not on file Social History Narrative Not on file Social Drivers of Health Financial Resource Strain: Not on file Food Insecurity: No Food Insecurity (02/29/2024) Hunger Screening Food Insecurity - Worry: Never True Food Insecurity - Inability: Never True Transportation Needs: Not on file Physical Activity: Not on file Stress: Not on file Social Connections: Not on file Interpersonal Safety: Not on file Housing Instability: Not on file Allergies Allergies Allergen Reactions Mold GI Disturbance Confirmed through allergy testing Current Medications Current Outpatient Medications Medication Sig Dispense Refill ascorbic acid, vitamin C, (vitamin C) 1000 mg tablet 1 tablet cholecalciferol, vitamin D3, 2,000 units tablet 0.5 tablets (1,000 Units total) in the morning. cinnamon bark 500 mg capsule Take 1 capsule (500 mg total) by mouth in the morning. cyanocobalamin (vitamin B-12) 1000 MCG tablet 500 tablets (500,000 mcg total). ERGOCALCIFEROL, VITAMIN D2, (VITAMIN D2 ORAL) Take by mouth. levothyroxine (SYNTHROID, LEVOTHROID) 137 MCG tablet Take 1 tablet (137 mcg total) by mouth in the morning. 90 tablet 3 pyridoxine, vitamin B6, (vitamin B-6) 100 mg tablet 1 tablet DYAN'S WORT ORAL Take by mouth. zinc 50 mg tablet tablet zinc cyclobenzaprine (FLEXERIL) 5 mg tablet Take 1 tablet (5 mg total) by mouth nightly as needed for muscle spasms. 14 tablet 0 No current facility-administered medications for this visit. Review of Systems Review of Systems Musculoskeletal: Positive for back pain. Neurological: Positive for numbness. Objective Vitals BP 126/82 Pulse 88 Temp 36.5 C (97.7 F) Resp 18 Ht 177.8 cm (5' 10 ) Wt 95.3 kg (210 lb) SpO2 97% BMI 30.13 kg/m Physical Exam Physical Exam Vitals and nursing note reviewed. Constitutional: Appearance: Normal appearance. She is well-developed. She is not ill-appearing. HENT: Head: Normocephalic and atraumatic. Eyes: General: No scleral icterus. Neck: Thyroid: No thyroid mass or thyromegaly. Vascular: No carotid bruit or JVD. Cardiovascular: Rate and Rhythm: Normal rate and regular rhythm. Heart sounds: Normal heart sounds, S1 normal and S2 normal. No murmur heard. Pulmonary: Effort: Pulmonary effort is normal. Breath sounds: Normal breath sounds. No decreased breath sounds, wheezing, rhonchi or rales. Abdominal: General: Bowel sounds are normal. Palpations: Abdomen is soft. Abdomen is not rigid. Tenderness: There is no abdominal tenderness. There is no guarding or rebound. Musculoskeletal: Lumbar back: Tenderness present. Decreased range of motion. Positive right straight leg raise test and positive left straight leg raise test. Comments: LE strength 4/5 bilaterally Skin: General: Skin is warm and dry. Coloration: Skin is not pale. Neurological: Mental Status: She is alert and oriented to person, place, and time. Gait: Gait normal. Psychiatric: Attention and Perception: She is attentive. Speech: Speech normal. Behavior: Behavior normal. Thought Content: Thought content normal. Judgment: Judgment normal. Recent Pertinent Labs and Radiology Assessment/Plan 1. Chronic left-sided low back pain with left-sided sciatica 2. Degeneration of intervertebral disc of lumbar region, unspecified whether pain present - [facility] [place], [place]; Future - cyclobenzaprine (FLEXERIL) 5 mg tablet; Take 1 tablet (5 mg total) by mouth nightly as needed for muscle spasms. Dispense: 14 tablet; Refill: 0 3. Paresthesias PT Caution with nsaids d/t epigastric discomfort Tylenol 650 mg q 6-8 hours prn F/U after PT There are no discontinued medications. There are no Patient Instructions on file for this visit. EVERTON Almazan 02/29/24 1250 documented in this encounter [facility] 07-07-2023 History of Presen t illness Narrative Subjective Patient ID: Joyce Grayson is a 62 y.o. female. Chief Complaint Chief Complaint Patient presents with New Patient Est care HPI HPI Very pleasant new patient here to establish care Past history of Ginette's thyroiditis for which she follows with Endocrinology Colonoscopy and screening mammogram reviewed Vaccines reviewed, prefers not to get vaccines She offers no specific complaints. She has had intermittent low back pain and knee pain no active complaints. Past Medical History Past Medical History: Diagnosis Date Disease of thyroid gland hashimotos Past Surgical History Past Surgical History: Procedure Laterality Date COLONOSCOPY COLONOSCOPY 10/22/2011 SHOULDER SURGERY Right Family History Family History Problem Relation Age of Onset Breast cancer Maternal Aunt 63 Heart disease Father Alzheimer's disease Mother Cancer Cousin leukemia Breast cancer Cousin 31 Social History Social History Socioeconomic History Marital status: Spouse name: Not on file Number of children: Not on file Years of education: Not on file Highest education level: Not on file Occupational History Not on file Tobacco Use Smoking status: Never Smokeless tobacco: Not on file Substance and Sexual Activity Alcohol use: Yes Comment: occasional Drug use: Never Sexual activity: Yes Partners: Male control/protection: None Other Topics Concern Not on file Social History Narrative Not on file Social Determinants of Health Financial Resource Strain: Not on file Food Insecurity: No Food Insecurity (07/07/2023) Hunger Screening Food Insecurity - Worry: Never True Food Insecurity - Inability: Never True Transportation Needs: Not on file Physical Activity: Not on file Stress: Not on file Social Connections: Not on file Interpersonal Safety: Not on file Housing Instability: Not on file Allergies Allergies Allergen Reactions Mold GI Disturbance Confirmed through allergy testing Current Medications Current Outpatient Medications Medication Sig Dispense Refill ascorbic acid, vitamin C, (vitamin C) 1000 mg tablet 1 tablet cholecalciferol, vitamin D3, 2,000 units tablet 0.5 tablets (1,000 Units total) in the morning. cinnamon bark 500 mg capsule Take 1 capsule (500 mg total) by mouth in the morning. cyanocobalamin (vitamin B-12) 1000 MCG tablet 500 tablets (500,000 mcg total). ERGOCALCIFEROL, VITAMIN D2, (VITAMIN D2 ORAL) Take by mouth. levothyroxine (SYNTHROID, LEVOTHROID) 137 MCG tablet Take 1 tablet (137 mcg total) by mouth in the morning. 90 tablet 3 pyridoxine, vitamin B6, (vitamin B-6) 100 mg tablet 1 tablet zinc 50 mg tablet tablet zinc DYAN'S WORT ORAL Take by mouth. No current facility-administered medications for this visit. Review of Systems Review of Systems All other systems reviewed and are negative. Objective Vitals BP 122/82 Pulse 78 Temp 36.6 C (97.8 F) Ht 177.8 cm (5' 10 ) Wt 96.6 kg (213 lb) SpO2 97% BMI 30.56 kg/m Physical Exam Physical Exam Vitals and nursing note reviewed. Constitutional: Appearance: Normal appearance. She is well-developed. She is not ill-appearing. HENT: Head: Normocephalic and atraumatic. Eyes: General: No scleral icterus. Neck: Thyroid: No thyroid mass or thyromegaly. Vascular: No carotid bruit or JVD. Cardiovascular: Rate and Rhythm: Normal rate and regular rhythm. Heart sounds: Normal heart sounds, S1 normal and S2 normal. No murmur heard. Pulmonary: Effort: Pulmonary effort is normal. Breath sounds: Normal breath sounds. No decreased breath sounds, wheezing, rhonchi or rales. Abdominal: General: Bowel sounds are normal. Palpations: Abdomen is soft. Abdomen is not rigid. Tenderness: There is no abdominal tenderness. There is no guarding or rebound. Musculoskeletal: General: No tenderness. Skin: General: Skin is warm and dry. Coloration: Skin is not pale. Neurological: Mental Status: She is alert and oriented to person, place, and time. Gait: Gait normal. Psychiatric: Attention and Perception: She is attentive. Speech: Speech normal. Behavior: Behavior normal. Thought Content: Thought content normal. Judgment: Judgment normal. Recent Pertinent Labs and Radiology Assessment/Plan 1. 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 BMI 30.0-30.9,adult 3. Mixed hyperlipidemia F/U March, then yearly or prn Medications Discontinued During This Encounter Medication Reason meloxicam (MOBIC) 15 mg tablet Therapy completed tiZANidine (ZANAFLEX) 4 mg tablet Therapy completed There are no Patient Instructions on file for this visit. EVERTON Almazan 07/07/23 1431 documented in this encounter [facility] 06-15-2023 Miscellaneous Notes This is a 90 day supple request documented in this encounter [facility] 06-15-2023 Telephone encounter Note This is a 90 day supple request [facility] 05-18-2023 History of Presen t illness Narrative Subjective Patient ID: Joyce Grayson is a 62 y.o. female. She had an old back injury 20-25 years ago and right now she has been preparing for home renovation and she had been preparing for a renovation and she reinjured her back She has been hunched over and having a lot of pain Her is currently hospitalized for back surgery and she has been back and forth to [facility] It is centered in right lower thoracic and low back It has also radiated to the left butt cheek and the back of the left leg A little tingling in the left leg No difficulty moving her bowels She has used heat and then changed to ice She has been taking ibuprofen She has had a little improvement Very difficult to stand or sit upright This has been going on a little over a week The following portions of the patient's history were reviewed and updated as appropriate: allergies, current medications, past family history, past medical history, past social history, past surgical history, problem list, and medication reconciliation was completed including current medication and post discharge medication. Review of Systems Constitutional: Negative. HENT: Negative. Eyes: Negative. Respiratory: Negative. Cardiovascular: Negative. Gastrointestinal: Negative. Endocrine: Negative. Genitourinary: Negative. Musculoskeletal: Positive for back pain and gait problem. Allergic/Immunologic: Negative. Hematological: Negative. Psychiatric/Behavioral: The patient is nervous/anxious. Objective Physical Exam Vitals and nursing note reviewed. Constitutional: Appearance: She is obese. HENT: Head: Normocephalic. Eyes: Conjunctiva/sclera: Conjunctivae normal. Cardiovascular: Rate and Rhythm: Normal rate and regular rhythm. Pulses: Normal pulses. Heart sounds: Normal heart sounds. No murmur heard. Pulmonary: Effort: Pulmonary effort is normal. Breath sounds: Normal breath sounds. Musculoskeletal: General: Tenderness present. Lumbar back: Spasms and tenderness present. Decreased range of motion. Negative right straight leg raise test and negative left straight leg raise test. Right lower leg: No edema. Left lower leg: No edema. Comments: DTR 2+ bilaterally Sensation intact Able to flex to 90 degrees Pain with side to side rotation Unable to stand fully erect, Positive spasm in right lower thoracic and lumbar when attempts to extend to a neutral position Point of maximal tenderness, right L2-L3 but tenderness diffuse across the lower lumbar and SI joints bilaterally Gait very stiff, slow with forward flexion at 10-15 degrees Skin: Capillary Refill: Capillary refill takes less than 2 seconds. Neurological: Mental Status: She is alert and oriented to person, place, and time. Psychiatric: Thought Content: Thought content normal. Judgment: Judgment normal. Assessment/Plan Joyce was seen today for back pain. Diagnoses and all orders for this visit: Strain of lumbar region, initial encounter Other orders - meloxicam (MOBIC) 15 mg tablet; Take 1 tablet (15 mg total) by mouth in the morning. - tiZANidine (ZANAFLEX) 4 mg tablet; Take 1 tablet (4 mg total) by mouth once daily at bedtime. Alternate heat and ice but use ice predominantly Try gentle stretching Use tizanidine only as hs as she is driving back and forth to [place] daily for up to two weeks may refill one time Call if not improving Avoid heavy lifting JAELYN Mast 05/18/23 1237 documented in this encounter [facility] 11-25-2022 Procedure note [facility] 01-30-2021 Note HNO ID: [id number] Author: Fariha Hernandez OD Service: ? Author Type: CITY LETTER CARRIER Type: Progress Notes Filed: 01/30/2021 2:52 PM Note Text: Assessment and Plan H52.203, H52.4 Astigmatism with presbyopia, bilateral (primary encounter diagnosis) Comment: stable rx, copy released H25.13 NS (nuclear sclerosis), bilateral Comment: pt ed, mild. Monitor yearly H43.393 Floaters in visual field, bilateral Comment: central, small floaters Both eyes Signs and symptoms of a retinal tear/detachment (flashes, floaters or change in peripheral vision) were reviewed with the patients. Patient understands they should return or call our office immediately if any of theses symptoms present. January 30, 2021, 2:[address] 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 Report any NEW abdominal pain or vomiting. -Watch for rectal bleeding if you have a polyp removed. You may have oozing, but notify the doctor if you pass clots. -Avoid aspirin for 2 days IF a polyp is removed. -It is important to keep your appointments for follow up examinations because polyps can grow back. FOR LOGAN/EGD/ERCP/PEG: -Your throat may feel sore today from the scope that the doctor passed through your throat to visualize your stomach. Take a throat lozenge or suck on ice to ease the discomfort. -Do NOT smoke. -You may notice some streaks of blood in your sputum if the doctor has taken a biopsy. Notify the doctor if you cough up large amounts of blood. -Expect a gassy or full feeling after esophagoscopy. Report any persistent pain or vomiting. -Take it easy today. You need not stay in bed, but avoid strenuous activities such as jogging. FOR SEDATION FOR 24 HOURS: -NO driving -Do NOT operate machinery such as power tools, lawn mowers, snow blowers, sewing machines, etc. -Avoid alcoholic beverages and drugs for allergies, nerves, or sleep. -Do NOT stay alone. Do NOT leave your child unattended. -Do NOT make important personal or business decisions or sign any legal documents. -Eat solid foods and drink liquids in smaller amounts than usual until normal appetite returns. If you should experience an upset stomach, liquids high in sugar content (soda, Panfilo-aid, non-acid juices) are recommended. -You can resume normal activities tomorrow. FOLLOW UP Please call the office and make a follow up appointment to see me as needed. Repeat colonoscopy in 10 years -Notify the doctor if you have any problems. -Office number [phone] Work Phone: InstructionsNot on filedocumented in this encounter [facility] SystemInstructionsNot on filedocumented in this encounter [email or web address] on filedocumented in this encounter [email or web address] on filedocumented in this encounter [email or web address] Summary Purpose Family History No Family History Records Found Relationship Condition Age at Onset Recorded Date/T kameron Not Specified Alzheimer's disease Unknown father Heart disease Unknown family member Malignant neoplasm of breast Unknown brother Disorder of liver Unknown Advance Directives No Advanced Directives Records Found Advance Directive Response Recorded Date/ Time Advance Directives No November 19 5:21pm Chief Complaint and Reason for Visit Chief Complaint Screening Reason for Visit Encounter for screen ing colonoscopy Additional Source Comments INFORMATION SOURCE (unrecogn ized section and content) DATE CREATED AUTHOR 03/31/2021 [facility] DATE CREATED AUTHOR AUTHOR'S ORGANIZ ATION 06/16/2021 [facility] DATE CREATED AUTHOR AUTHOR'S ORGANIZ ATION 02/18/2022 [facility] DATE CREATED AUTHOR AUTHOR'S ORGANIZ ATION 11/29/2022 [facility] DATE CREATED AUTHOR AUTHOR'S ORGANIZ ATION 09/30/2023 [facility] DATE CREATED AUTHOR AUTHOR'S ORGANIZ ATION 01/15/2024 [facility] DATE CREATED AUTHOR AUTHOR'S ORGANIZ ATION 01/15/2024 [facility] DATE CREATED AUTHOR AUTHOR'S ORGANIZ ATION [facility]/01/[address] [facility] Care Teams (unrecognized sec tion and content) Team Status: Active Member Role Status Dates Fariha Harrington DO Primary Care Provider Active Team Status: Inactive Member Role Status Dates Good Yu MD Attending Provider Active Fariha Harrington DO Primary Care Provider Active Technical Trainer Relationship Specialty Start Date End Date Fariha Harrington DO [address] [place] [address] PCP - General Internal Medicine 10/06/16 Technical Trainer Relationship Specialty Start Date End Date Fariha Harrington DO [address] [place] [address] PCP - General Internal Medicine 10/06/16 Technical Trainer Relationship Specialty Start Date End Date Kathy Perez APRN-CNP [address] [facility] [address] [place] [id number] PCP - General Internal Medicine 07/07/23 Technical Trainer Relationship Specialty Start Date End Date Kathy Perez APRN-CNP [address] [facility] [address] [place] [id number] PCP - General Internal Medicine 07/07/23 Reason for Visit (unrecogniz ed section and content) Reason Comments Back Pain Low Reason Onset Date Comments Med Refill 06/10/2023 Reason Onset Date Comments Med Refill 06/15/2023 Reason Comments New Patient Est care Reason Comments Follow-up Completed labs and t esting FOR RECORDS PERTAINING TO PATIENTS WHO ARE OR HAVE BEEN ENROLLED IN A CHEMICAL DEPENDENCY/SUBSTANCEABUSE PROGRAM, SOME INFORMATION MAY BE OMITTED. This clinical summary was aggregated from multiple sources. Caution should be exercised in using it in the provision of clinical care. This summary normalizes information from multiple sources, and as a consequence, information in this document may materially change the coding, format and clinical context of patient data. In addition, data may be omitted in some cases. CLINICAL DECISIONS SHOULD BE BASED ON THE PRIMARY CLINICAL RECORDS. [facility]. provides no warranty or guarantee of the accuracy or completeness of information in this document.
== END 2024-03-01 12:43 | disposition home or self-care (01) ==
LOC: MAMMO 12:43
PROVIDERS: Visit Provider Nurse Practitioner
DX: Z12.31 Encounter for screening mammogram for malignant neoplasm of breast (principal); Z80.3 Family history of malignant neoplasm of breast; Z80.9 Family history of malignant neoplasm, unspecified
CPT/HCPCS: 77063; 77067